=== PATIENT | male | born 1955 | race Caucasian/White ===

== ENCOUNTER 2016-08-18 12:19 | Emergency (ER) | payer SELFPAY ==
[2016-08-18] MEDS ORDERED: OXYCODONE/APAP 5/325 TAB PO ONE (13:52)
--- NOTE | 2016-08-18 13:53 | EDPHY ---
H & P Smoking Status: Never smoked Time Seen by Provider: 08/18/16 13:44 HPI/ROS: CHIEF COMPLAINT: Rib pain HISTORY OF PRESENT ILLNESS: This is a 61-year-old male patient presenting to the emergency department complaining of right side lower rib pain status post falling 3 days ago while in [place]. Patient states pain has increased with some shortness of breath, pain with movement. Denies any chest pain any other injuries REVIEW OF SYSTEMS: Constitutional: No fever, no chills. Eyes: No discharge. ENT: No sore throat. Cardiovascular: no palpitations. Respiratory: shortness of breath. Gastrointestinal: No abdominal pain, no vomiting. Genitourinary: No hematuria. Musculoskeletal: No back pain. Right-sided rib pain Skin: No rashes. Neurological: No headache. (Jacqueline Renee) Physical Exam: General Appearance: Alert, no distress. Eyes: Pupils equal and round no pallor or injection. ENT, Mouth: Mucous membranes moist. Respiratory: There are no retractions, lungs are clear to auscultation. Cardiovascular: Regular rate and rhythm. Gastrointestinal: Abdomen is soft and nontender, no masses, bowel sounds normal. Neurological: No focal deficits Skin: Warm and dry, no rashes. Musculoskeletal: Vertebral cervical spine nontender on palpation, full range of motion. Anterior right lower rib tenderness small abrasion noted Extremities: symmetrical, full range of motion. Psychiatric: Patient is oriented X 3, there is no agitation. (Jacqueline Renee) Constitutional: Initial Vital Signs Temperature (C) 36.5 C 08/18/16 12:26 Heart Rate 90 08/18/16 12:26 Respiratory Rate 16 08/18/16 12:26 Blood Pressure 187/128 H 08/18/16 12:26 O2 Sat (%) 98 08/18/16 12:26 O2 Delivery Mode Room Air Allergies/Adverse Reactions: codeine Allergy (Verified 08/18/16 12:25) Home Medications: Medication Instructions Recorded Oxycodone HCl 08/18/16 oxyCODONE/APAP 5/325 [Percocet 1 - 2 tab PO Q4H PRN #20 tab 08/18/16 5/325 (*)] Medical Decision Making ED Course/Re-evaluation: Discussed ED plan of care: Chest x-ray, pain meds 1500: Discussed x-ray results with patient 4th rib fracture on right side, patient stated he knew he had a rib fracture was seen in [place] for this injury. Discharge home---> stable, vital signs within normal discussed all discharge instructions with patient and complications that can arise from rib fracture (Jacqueline Renee) Differential Diagnosis: Other differential diagnosis considered but not limited to pneumothorax, pleural effusion and flail segment (Jacqueline Renee) Other Provider: The patient wasevaluatedand managed by themidlevel provider. Idiscussed the patient's presentation and course with thephysicianassistantor nurse practitionerand agree with theevaluation. My co-signature indicates that I have reviewed this chart and I agree with the findings and plan of care as documented. I am the secondary supervisingphysician. (Brook Cowan) - Data Points Medications Given: Discontinued Medications Oxycodone/Acetaminophen (Percocet 5/325) 2 tab PO EDNOW ONE Stop: 08/18/16 13:53 Last Admin: 08/18/16 14:22 Dose: 2 tab Departure - Departure Disposition: Home, Routine, Self-Care Clinical Impression: Fracture, rib Condition: Good Instructions: Rib Fracture (ED) Additional Instructions: 1. Use the incentive spirometer to take deep breaths 2. pain medicine as needed 3. Follow up with your primary care provider within the next 1-2 weeks 4. If any symptoms worsen such as chest pain or shortness of breath return to the ER Referrals: NONE *PRIMARY CARE P,. [Primary Care Provider] - As per Instructions [facility],. [Clinic] - As per Instructions Prescriptions: oxyCODONE/APAP 5/325 [Percocet 5/325 (*)] 1 - 2 tab PO Q4H PRN #20 tab PRN Reason: Pain, Severe
[2016-08-18 15:09] VITALS: BP 169/94; PULSE 76; RESP 18; TEMP 97.9; O2SAT 95
== END 2016-08-18 15:09 | disposition home or self-care (01) ==
DX: S22.31XA Fracture of one rib, right side, initial encounter for closed fracture (principal); W18.39XA Other fall on same level, initial encounter